=== PATIENT | male | born 1975 | race African-American/Black ===

== ENCOUNTER 2025-02-02 03:49 | Emergency (ER) | payer MEDICAID ==
[~2025-02-02] VITALS: Ht 172.7 cm; Wt 88.0 kg
[~2025-02-02 03:49] MED LIST: LOPE2CAP40 PO
[2025-02-02 04:26] VITALS: BP 150/99; O2SAT 98
== END 2025-02-02 04:27 | disposition home or self-care (01) ==
LOC: ER 03:56
DX: I10 Essential (primary) hypertension (principal); E11.9 Type 2 diabetes mellitus without complications; F17.210 Nicotine dependence, cigarettes, uncomplicated; F20.9 Schizophrenia, unspecified; F31.9 Bipolar disorder, unspecified; Z59.00 Homelessness unspecified; Z60.2 Problems related to living alone
CPT/HCPCS: A4606; A4663

== ENCOUNTER 2025-02-15 04:12 | Emergency (ER) | payer MEDICAID ==
[~2025-02-15] VITALS: Ht 172.7 cm; Wt 88.5 kg
[2025-02-15] MEDS: MECLIZINE HCL 25 MG TABLET PO ONE (05:41)
[2025-02-15 06:45] VITALS: BP 120/88; TEMP 98; O2SAT 99
== END 2025-02-15 06:46 | disposition home or self-care (01) ==
LOC: ER 04:16
DX: R42 Dizziness and giddiness (principal); R00.0 Tachycardia, unspecified; E11.9 Type 2 diabetes mellitus without complications; F17.210 Nicotine dependence, cigarettes, uncomplicated; F20.9 Schizophrenia, unspecified; F31.9 Bipolar disorder, unspecified; I10 Essential (primary) hypertension; Z59.00 Homelessness unspecified; Z88.7 Allergy status to serum and vaccine
CPT/HCPCS: A4606; A4663; J8597

== ENCOUNTER → 2025-08-04 | Emergency (ER) | payer MEDICAID ==
[~2025-08-04] VITALS: Ht 172.7 cm; Wt 77.1 kg
[2025-08-04] MEDS: IV NORMAL SALINE 1000 ML BAG IV ONE (01:15)
[2025-08-04 01:27] LABS: PLATELET COUNT (AUTO) 176 K/uL (152-348); RED CELL DISTRIBUTION WIDTH 18.0 % (12.1-16.2); WHITE BLOOD COUNT (AUTO) 7.5 K/uL (3.6-10.2)
[2025-08-04 01:30] LABS: RED BLOOD CELL COUNT(AUTO) 6.59 MIL/uL (4.06-5.63)
[2025-08-04 01:35] LABS: CREATININE 1.2 mg/dL (0.6-1.3); SODIUM SERUM 146.0 mmol/L (136-145); UREA NITROGEN, BLOOD 17.0 mg/dL (7-18)
[2025-08-04 01:40] LABS: ASPARTATE AMINOTRANSFERASE 15.0 U/L (15-37); TOTAL PROTEIN, SERUM 7.9 g/dL (6.4-8.2)
[2025-08-04 01:57] LABS: EOSINOPHILS % (MANUAL) 1 % (0-8); LYMPHOCYTES % (MANUAL) 20 % (20-40); MONOCYTES % (MANUAL) 7 % (2-10); NEUTROPHILS % (MANUAL) 72 % (42-75); PLATELET ESTIMATE ADEQUATE
[2025-08-04 02:26] VITALS: BP 105/57
[2025-08-04] MEDS: LORAZEPAM 2 MG/1 ML VIAL IV ONE (02:31)
[2025-08-04 03:11] VITALS: BP 105/57; O2SAT 99
== END | disposition home or self-care (01) ==
LOC: ER 00:56
DX: R10.9 Unspecified abdominal pain (principal); F12.90 Cannabis use, unspecified, uncomplicated; E11.9 Type 2 diabetes mellitus without complications; F17.210 Nicotine dependence, cigarettes, uncomplicated; Z88.7 Allergy status to serum and vaccine
CPT/HCPCS: 99283; 96360; 96361; 80076; 80048; 83690; 85007; 85027; J7040; 70030-TC; A4606; A4663